=== PATIENT | male | born 1950 | race American Indian/Alaskan Native ===

== ENCOUNTER 2022-02-10 15:17 | Emergency (ER) | payer OTHER, SELFPAY ==
[2022-02-10 15:24] VITALS: BP 144/79; PULSE 64; RESP 18; TEMP 36.2; O2SAT 93
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
== END 2022-02-10 16:20 | disposition home or self-care (01) ==
PROVIDERS: Emergency Provider Internal Medicine Critical Care Medicine
DX: R07.89 Other chest pain (principal); S80.12XA Contusion of left lower leg, initial encounter; M54.50 Low back pain, unspecified; V89.2XXA Person injured in unspecified motor-vehicle accident, traffic, initial encounter
CPT/HCPCS: 99283